=== PATIENT | male | born 1950 | race Caucasian/White ===

== ENCOUNTER 2017-09-09 08:27 | Day surgery (SDC) | payer MEDICARE, MEDICAID ==
[~2017-09-09] VITALS: Ht 170.2 cm; Wt 67.9 kg
[~2017-09-09 08:27] MED LIST: ADAL40KI SQ; OMEP-84 PO
[2017-09-09] MEDS ORDERED: LIDOcaine 1%/PF 5ML 10 MG/ML VIAL SQ STA (08:40)
[2017-09-09 08:45] VITALS: BP 108/64
[2017-09-09 09:13] VITALS: BP 162/100
[2017-09-09] MEDS ORDERED: HYDROcodone/acetaminophen 10/325mg tab PO ONE (09:30)
[2017-09-09 09:35] VITALS: BP 145/94
[2017-09-09] MEDS ORDERED: ALBU8.5H8 IH (11:04)
[2017-09-09] MEDS ORDERED: AZIL40TA PO (11:04)
[2017-09-09 11:06] LABS: GLUCOSE,BODY FLUID 59 MG/DL; LDH,BODY FLUID 419 U/L; TOTAL PROTEIN,BODY FLUID 6.1 G/DL
[2017-09-09 11:30] LABS: BF RBC COUNT 110000 /CU MM; BF WBC COUNT 6130 /CU MM (0-1000); BFAPPEAR TURBID; BFCOLOR RED; BFVOLUME 52 ML
[2017-09-09 12:14] LABS: LYMPHOCYTES,BODY FLUID 83 %; MONOCYTES,BODY FLUID 16 %; NEUTROPHILS,BODY FLUID 1 %
== END 2017-09-09 10:08 | disposition home or self-care (01) ==
LOC: SSTAY O 08:27
PROVIDERS: ATTEND Radiology Diagnostic Radiology
DX: J90 Pleural effusion, not elsewhere classified (principal); I10 Essential (primary) hypertension; F41.8 Other specified anxiety disorders; K21.9 Gastro-esophageal reflux disease without esophagitis; G89.29 Other chronic pain; J44.9 Chronic obstructive pulmonary disease, unspecified; I89.8 Other specified noninfective disorders of lymphatic vessels and lymph nodes; N40.0 Benign prostatic hyperplasia without lower urinary tract symptoms; Z85.820 Personal history of malignant melanoma of skin; Z72.89 Other problems related to lifestyle; Z87.891 Personal history of nicotine dependence; Z88.8 Allergy status to other drugs, medicaments and biological substances; Z79.899 Other long term (current) drug therapy
CPT/HCPCS: 32555; 71045; 82945; 83615; 84157; 87070; 89051; J2001

== ENCOUNTER 2017-12-30 07:43 | Day surgery (SDC) | payer MEDICARE, MEDICAID ==
[~2017-12-30] VITALS: Ht 167.6 cm; Wt 67.4 kg
[2017-12-30] VITALS (8 sets, daily range): BP systolic 172–212; BP diastolic 73–125
[~2017-12-30 07:43] MED LIST changes: +ALBU8.5H8 IH; +AZIL40TA PO
[2017-12-30] MEDS ORDERED: LIDOcaine 1% (10mg/ml)w/preservative injection 20ml MDV SQ ONE (09:00)
== END 2017-12-30 10:55 | disposition home or self-care (01) ==
LOC: SSTAY O 07:43
PROVIDERS: ATTEND Radiology Diagnostic Radiology
DX: J90 Pleural effusion, not elsewhere classified (principal); I10 Essential (primary) hypertension; K21.9 Gastro-esophageal reflux disease without esophagitis; F41.8 Other specified anxiety disorders; N40.0 Benign prostatic hyperplasia without lower urinary tract symptoms; Z87.891 Personal history of nicotine dependence; Z72.89 Other problems related to lifestyle; Z87.09 Personal history of other diseases of the respiratory system; Z88.6 Allergy status to analgesic agent; Z85.820 Personal history of malignant melanoma of skin; Z79.899 Other long term (current) drug therapy; Z88.8 Allergy status to other drugs, medicaments and biological substances
CPT/HCPCS: 32555; 71045; J2001